=== PATIENT | male | born 1990 | race Hispanic/Latino ===

== ENCOUNTER 2017-06-10 14:56 | Emergency (ER) | payer OTHER ==
[2017-06-10 15:08] VITALS: BP 130/70; PULSE 110; RESP 18; TEMP 97.7; O2SAT 95
--- NOTE | 2017-06-10 16:15 | ED PDOC ---
HPI: Seizure Time Seen by Provider: 06/10/17 15:28 Chief Complaint (Nursing): Seizure Chief Complaint (Provider): Seizure History Per: Patient History/Exam Limitations: no limitations Recent Seizure Activity Began: Just Before Arrival Number Of Seizures: One Length Of Seizures (Duration): Minutes (1) Additional Complaint(s): 26 year old male with a past medical history of seizures and epilepsy, who presents to the ED due to seizure x1 witnessed by a friend just prior to arrival. Friend states patient had 1 generalized seizure with loss of consciousness lasting 1 minute. States patient was seated when the seizure began and slumped in his chair during its duration, but did not fall. Patient states he does not remember the episode. Friend states the patient woke up after and seems to be doing well since. Patient reports a history of seizures and a diagnosis of epilepsy as a child, for which he takes Keppra 1500 mg daily. Patient states he hasn't taken Keppra for 2 days due to running out and not being able to fill his Rx. Denies other complaints at this time. PMD: Provider TBD Past Medical History Reviewed: Historical Data, Nursing Documentation, Vital Signs Vital Signs: Last Vital Signs Temp 97.7 F 06/10/17 15:04 Pulse 110 H 06/10/17 15:04 Resp 18 06/10/17 15:04 BP 130/70 06/10/17 15:04 Pulse Ox 95 06/10/17 16:43 - Medical History PMH: Seizures - Surgical History Surgical History: Tonsillectomy - Family History Family History: States: Unknown Family Hx - Social History Current smoker - smoking cessation education provided: No Alcohol: None Drugs: Denies - Home Medications Home Medications: Ambulatory Orders Medication Instructions Recorded Levetiracetam [Keppra] 1,500 mg PO DAILY #60 tablet 06/10/17 - Allergies Allergies/Adverse Reactions: Allergies Allergy/AdvReac Type Severity Reaction Status Date / Time No Known Allergies Allergy Verified 06/10/17 15:08 Review of Systems ROS Statement: Except As Marked, All Systems Reviewed And Found Negative Neurological: Positive for: Seizures Physical Exam - Reviewed Nursing Documentation Reviewed: Yes Vital Signs Reviewed: Yes - Physical Exam Appears: Positive for: Non-toxic, No Acute Distress Head Exam: Positive for: ATRAUMATIC, NORMAL INSPECTION, NORMOCEPHALIC Skin: Positive for: Normal Color, Warm, Dry. Negative for: Rash Eye Exam: Positive for: EOMI, Normal appearance, PERRL Neck: Positive for: Normal, Painless ROM, Supple Cardiovascular/Chest: Positive for: Regular Rate, Rhythm. Negative for: Murmur Respiratory: Positive for: Normal Breath Sounds. Negative for: Respiratory Distress Gastrointestinal/Abdominal: Positive for: Normal Exam, Bowel Sounds, Soft. Negative for: Tenderness Back: Positive for: Normal Inspection. Negative for: L CVA Tenderness, R CVA Tenderness, Vertebral Tenderness Extremity: Positive for: Normal ROM. Negative for: Pedal Edema, Deformity Neurologic/Psych: Positive for: Alert, purchase analyst II-XII (intact), Oriented (x3). Negative for: Motor/Sensory Deficits, Gait, Aphasia, Facial Droop - ECG O2 Sat by Pulse Oximetry: 95 (RA) Pulse Ox Interpretation: Normal Medical Decision Making Medical Decision Making: Time: 15:50 Initial Impression: Recurrent seizure due to medication non-compliance. Initial Plan: --EKG --Keppra 1,500 mg PO --Accucheck --Reevaluation Time: 16:30 At this time no indication for labs or brain imaging. Patient back to baseline and history of longstanding epilepsy and obvious reason for seizure is non- compliance of medication. Scribe Attestation: Documented by Emmanuel Carter, acting as a scribe for Louis Samuel MD. Provider Scribe Attestation: All medical record entries made by the Scribe were at my direction and personally dictated by me. I have reviewed the chart and agree that the record accurately reflects my personal performance of the history, physical exam, medical decision making, and the department course for this patient. I have also personally directed, reviewed, and agree with the discharge instructions and disposition. Disposition - Clinical Impression Clinical Impression: Recurrent seizures - Patient ED Disposition Is Patient to be Admitted: No Counseled Patient/Family Regarding: Studies Performed, Diagnosis, Need For Followup - Disposition Referrals: Your , neurologist [Other] Disposition: Routine/Home Disposition Time: 16:30 Condition: GOOD Additional Instructions: Take your medications daily. Return for recurrent seizures. Follow up with your neurologist in 2 days. Prescriptions: Levetiracetam [Keppra] 1,500 mg PO DAILY #60 tablet Instructions: Epilepsy in Adults
--- NOTE | 2017-06-12 03:07 | CARD ---
APPROVED REPORT EKG Measurement Heart [id number] <Conclusion> Normal sinus rhythm Possible Left atrial enlargement Borderline ECG
== END 2017-06-10 16:49 | disposition home or self-care (01) ==
LOC: H.ER 14:56
DX: G40.909 Epilepsy, unspecified, not intractable, without status epilepticus (principal); Z91.14 Patient's other noncompliance with medication regimen